=== PATIENT | female | born 1960 | race Caucasian/White ===

== ENCOUNTER 2018-01-21 10:47 | Day surgery (SDC) | payer OTHER ==
[~2018-01-21] VITALS: Ht 157.5 cm; Wt 58.1 kg
[~2018-01-21 10:47] MED LIST: FLONASE ALLERG9.9 ML BOTH NARES; IMITREX100 MG PO; INDERAL PO; INDERAL10 MG PO; MULTIVITAMIN1 EAC2 PO; NEXIUM40 MG PO; PRINIVIL10 MG PO; PRISTIQ100 MG PO; PRISTIQ50 MG PO; PROTONIX40 MG PO; ZYRTEC10 M3 PO
[2018-01-21 11:27] VITALS: BP 168/97
[2018-01-21 11:29] VITALS: BP 168/97
[2018-01-21 14:21] VITALS: BP 164/81
[2018-01-21 14:51] VITALS: BP 151/83
== END 2018-01-21 15:01 | disposition home or self-care (01) ==
LOC: SDC 10:47
PROC: 0QSN0ZZ Reposition Right Metatarsal, Open Approach (ICD-10-PCS; principal; 2018-01-21)
DX: M20.11 Hallux valgus (acquired), right foot (principal); I10 Essential (primary) hypertension; F41.9 Anxiety disorder, unspecified; K21.9 Gastro-esophageal reflux disease without esophagitis
CPT/HCPCS: C1769; J0690; J1885; J2250; J3010; S0020